=== PATIENT | male | born 2000 | race Hispanic/Latino ===

== ENCOUNTER 2019-09-30 13:38 | Emergency (ER) | payer OTHER, SELFPAY ==
[2019-09-30] MEDS ORDERED: HYDROCODONE/APAP 10/325 TAB ONE (14:21)
--- NOTE | 2019-09-30 16:00 | ER ---
Nurse's Notes [facility] Name: Ilir Underwood Age: 18 yrs Sex: Male : 2000 Arrival Date: 09/30/2019 Time: 13:40 Bed 20 Private MD: Diagnosis: Acute upper respiratory infection, unspecified Presentation: 09/29 13:48 Chief complaint: Patient states: Monday, feeling ill, sore throat body aches. Reports ca1 mid and low back pain, radiating to both legs. Reports difficulty urinating, urinary urgency and frequency. Denies cough. Reports a little SOB. Denies N/V/D. Coronavirus screen: Surgical mask placed on patient. Patient moved to private room, placed in contact and droplet isolation with eye protection until further assessment. Patient denies a cough. Patient reports shortness of breath or difficulty breathing. Patient reports a measured and/or subjective temperature greater than 100.4F. Patient denies travel on a cruise ship or to a country the [facility] currently lists as an affected area. Patient denies contact with known and/or suspected case of COVID-19. Ebola Screen: Patient negative for fever greater than or equal to 101.5 degrees Fahrenheit, and additional compatible Ebola Virus Disease symptoms Patient denies exposure to infectious person. Patient denies travel to an Ebola-affected area in the 21 days before illness onset. No symptoms or risks identified at this time. Initial Sepsis Screen: Does the patient meet any 2 criteria? Temp <36.0*C (96.8*F)) or > 38.3*C (100.9*F). HR > 90 bpm. Does the patient have a suspected source of infection? Yes: Dysuria/Frequency/Urgency/UTI. Risk Assessment: Do you want to hurt yourself or someone else? Patient reports no desire to harm self or others. Onset of symptoms was September 30, 2019. 13:48 Method Of Arrival: Ambulatory ca1 13:48 Acuity: ASA 2 ca1 13:56 Note Took Tylenol and Ibuprofen 1000 an 1100 today. ca1 Historical: - Allergies: 13:54 No Known Allergies; ca1 - Home Meds: 13:54 None [Active]; ca1 - PMHx: 13:54 None; ca1 - PSHx: 13:54 None; ca1 - Immunization history:: Adult Immunizations up to date. - Social history:: Smoking status: Patient reports the use of cigarette tobacco products, smokes one-half pack cigarettes per day, Patient/guardian denies using alcohol, street drugs. - Family history:: not pertinent. Screenin:36 Abuse screen: Denies threats or abuse. Denies injuries from another. Nutritional jl7 screening: No deficits noted. Tuberculosis screening: No symptoms or risk factors identified. Fall Risk None identified. Assessment: 14:36 General: Appears in no apparent distress. uncomfortable, Behavior is calm, cooperative, jl7 appropriate for age. Pain: Complains of pain in all over Pain currently is 8 out of 10 on a pain scale. Neuro: Level of Consciousness is awake, alert, obeys commands, Oriented to person, place, time, situation. Cardiovascular: Patient's skin is warm and dry. Respiratory: Airway is patent Respiratory effort is even, unlabored, Respiratory pattern is regular, symmetrical. EENT: Throat is reddened. Derm: Skin is pink, warm \T\ dry. 15:30 Reassessment: Patient appears in no apparent distress at this time. No changes from jl7 previously documented assessment. Patient and/or family updated on plan of care and expected duration. Pain level reassessed. Patient is alert, oriented x 3, equal unlabored respirations, skin warm/dry/pink. 16:19 Reassessment: Patient states feeling better. Patient states symptoms have improved. jl7 Vital Signs: 13:48 BP 115 / 60; Pulse 124; Resp 16 S; Temp 103.2(O); Pulse Ox 96% on R/A; Weight 90.72 kg ca1 (R); Height 6 ft. 0 in. (182.88 cm) (R); Pain 8/10; 14:36 BP 126 / 74; Pulse 118; Resp 17 S; Temp 102.8(O); Pulse Ox 100% on R/A; jl7 16:13 BP 127 / 75; Pulse 104; Resp 17; Temp 101.4; Pulse Ox 100% ; jl7 13:48 Body Mass Index 27.12 (90.72 kg, 182.88 cm) ca1 ED Course: 13:40 Patient arrived in ED. ag5 13:54 Triage completed. ca1 13:54 Arm band placed on right wrist. ca1 13:57 Maria Esther Clement, RN is Primary Nurse. dw 14:05 Mikel Cee MD is Attending Physician. 14:34 Reinaldo Mahmood, STEFAN is Primary Nurse. jl7 14:36 Patient has correct armband on for positive identification. Bed in low position. Call jl7 light in reach. Side rails up X 1. Pulse ox on. NIBP on. 14:36 Flu and/or RSV swab sent to lab. Strep swab sent to lab. COVID-19 swab sent to lab. jl7 16:19 No provider procedures requiring assistance completed. Patient did not have IV access jl7 during this emergency room visit. Administered Medications: 14:25 Drug: [place] 10 mg-325 mg 1 tabs Route: PO; jl7 15:00 Follow up: Response: No adverse reaction; Pain is decreased jl7 Outcome: 15:59 Discharge ordered by . laisha 16:19 Discharged to home ambulatory. jl7 16:19 Condition: stable 16:19 Discharge instructions given to patient, Instructed on discharge instructions, follow up and referral plans. medication usage, Demonstrated understanding of instructions, follow-up care, medications, Prescriptions given X 3. 16:20 Patient left the ED. jl7 Addendum: 10/03/2019 15:29 Addendum: Other attempted to contact pt regarding negative COVID-19 swab results. d m5 Reached busy signal. 10/06/2019 12:01 Addendum: Other attempted to contact pt regarding negative COVID-19 swab results. d m5 Reached busy signal. Signatures: Alana Ashley, RN RN dm5 Maria Esther Clement, RN Cassidy Murray RN RN ss Leal, Jahala, Mikel Gonzalez RN, MD MD ma2 Acob, Cheryl, RN RN ca1 Gaskin, Ajare ag5
--- NOTE | 2019-09-30 16:00 | EDPHYS ---
Physician Documentation [facility] Name: Ilir Underwood Age: 18 yrs Sex: Male : 2000 Arrival Date: 09/30/2019 Time: 13:40 Bed 20 Private MD: ED Physician Mikel Cee HPI: 09/29 15:58 This 18 yrs old Male presents to ER via Ambulatory with complaints of Sore ma2 Throat, Body Aches. 15:58 The patient presents with dysphagia. The patient describes throat pain as constant. ma2 Onset: The symptoms/episode began/occurred gradually, 2 day(s) ago. Severity of symptoms: At their worst the symptoms were moderate, in the emergency department the symptoms are unchanged. Associated signs and symptoms: Pertinent negatives chills, diarrhea, dysphagia, fever. The patient has not experienced similar symptoms in the past. Historical: - Allergies: 13:54 No Known Allergies; ca1 - Home Meds: 13:54 None [Active]; ca1 - PMHx: 13:54 None; ca1 - PSHx: 13:54 None; ca1 - Immunization history:: Adult Immunizations up to date. - Social history:: Smoking status: Patient reports the use of cigarette tobacco products, smokes one-half pack cigarettes per day, Patient/guardian denies using alcohol, street drugs. - Family history:: not pertinent. ROS: 15:58 Constitutional: Negative for fever, chills, and weight loss. ma2 15:58 All other systems are negative. Exam: 15:58 Constitutional: This is a well developed, well nourished patient who is awake, alert, ma2 and in no acute distress. Head/Face: Normocephalic, atraumatic. Eyes: Pupils equal round and reactive to light, extra-ocular motions intact. Lids and lashes normal. Conjunctiva and sclera are non-icteric and not injected. Cornea within normal limits. Periorbital areas with no swelling, redness, or edema. ENT: Nares patent. No nasal discharge, no septal abnormalities noted. Tympanic membranes are normal and external auditory canals are clear. Oropharynx with no redness, swelling, or masses, exudates, or evidence of obstruction, uvula midline. Mucous membranes moist. Neck: Trachea midline, no thyromegaly or masses palpated, and no cervical lymphadenopathy. Supple, full range of motion without nuchal rigidity, or vertebral point tenderness. No Meningismus. Chest/axilla: Normal chest wall appearance and motion. Nontender with no deformity. No lesions are appreciated. Cardiovascular: Regular rate and rhythm with a normal S1 and S2. No gallops, murmurs, or rubs. Normal PMI, no JVD. No pulse deficits. Respiratory: Lungs have equal breath sounds bilaterally, clear to auscultation and percussion. No rales, rhonchi or wheezes noted. No increased work of breathing, no retractions or nasal flaring. Abdomen/GI: Soft, non-tender, with normal bowel sounds. No distension or tympany. No guarding or rebound. No evidence of tenderness throughout. MS/ Extremity: Pulses equal, no cyanosis. Neurovascular intact. Full, normal range of motion. Neuro: Awake and alert, GCS 15, oriented to person, place, time, and situation. Cranial nerves II-XII grossly intact. Motor strength 5/5 in all extremities. Sensory grossly intact. Cerebellar exam normal. Normal gait. Vital Signs: 13:48 BP 115 / 60; Pulse 124; Resp 16 S; Temp 103.2(O); Pulse Ox 96% on R/A; Weight 90.72 kg ca1 (R); Height 6 ft. 0 in. (182.88 cm) (R); Pain 8/10; 14:36 BP 126 / 74; Pulse 118; Resp 17 S; Temp 102.8(O); Pulse Ox 100% on R/A; jl7 16:13 BP 127 / 75; Pulse 104; Resp 17; Temp 101.4; Pulse Ox 100% ; jl7 13:48 Body Mass Index 27.12 (90.72 kg, 182.88 cm) ca1 MDM: 14:11 Patient medically screened. ma2 15:58 Differential diagnosis: bronchitis, pharyngitis, tonsillitis, upper respiratory ma2 infection, viral syndrome. Data reviewed: vital signs, nurses notes. Counseling: I had a detailed discussion with the patient and/or guardian regarding: the historical points, exam findings, and any diagnostic results supporting the discharge/admit diagnosis, the presence of at least one elevated blood pressure reading (>120/80) during this emergency department visit, the need for outpatient follow up. Response to treatment: the patient's symptoms have markedly improved after treatment. 09/29 14:12 Order name: COVID-19 [facility] 09/29 14:12 Order name: Flu [facility] 09/29 14:12 Order name: Strep; Complete Time: 15:44 [facility] 09/29 15:46 Order name: Throat Culture [facility] 09/29 14:12 Order name: Droplet/Contact Precautions; Complete Time: 14:15 [facility] 09/29 14:12 Order name: O2 Per Protocol; Complete Time: 14:15 [facility] Administered Medications: 14:25 Drug: [place] 10 mg-325 mg 1 tabs Route: PO; [facility] 15:00 Follow up: Response: No adverse reaction; Pain is decreased 7 Disposition: 09/30/19 15:59 Discharged to Home. Impression: Acute upper respiratory infection, unspecified. - Condition is Stable. - Discharge Instructions: Viral Respiratory Infection, [id number]. - Prescriptions for Diclofenac Sodium 75 mg Oral Tablet Sustained Release - take 1 tablet by ORAL route 2 times per day; 30 tablet. Zithromax Z- Duran 250 mg Oral Tablet - take 1 tablet by ORAL route as directed for 5 days Day 1 - take two (2) tablets one time. Day 2, 3, 4 , 5 take one (1) tablet once daily.; 6 tablet. Medrol (Duran) 4 mg Oral Tablets, Dose Pack - take 1 tablet by ORAL route as directed - follow package instructions; 1 packet. - Medication Reconciliation Form, Thank You Letter, Antibiotic Education, Prescription Opioid Use form. - Follow up: Private Physician; When: Tomorrow; Reason: Continuance of care. Signatures: Dispatcher [employer] [facility] Reinaldo Mahmood RN RN jl7 Mikel Cee MD MD ma2 Tara Bravo RN RN ca1 Corrections: (The following items were deleted from the chart) 16:20 15:59 09/30/2019 15:59 Discharged to Home. Impression: Acute upper respiratory jl7 infection, unspecified. Condition is Stable. Forms are Medication Reconciliation Form, Thank You Letter, Antibiotic Education, Prescription Opioid Use. Follow up: Private Physician; When: Tomorrow; Reason: Continuance of care. ma2
[2019-09-30 16:29] VITALS: O2SAT 100
[2019-09-30 16:30] VITALS: BP 127/75; TEMP 101.4
== END 2019-09-30 16:20 | disposition home or self-care (01) ==
LOC: ER 13:38
DX: J06.9 Acute upper respiratory infection, unspecified (principal); Z20.828 Contact with and (suspected) exposure to other viral communicable diseases; F17.210 Nicotine dependence, cigarettes, uncomplicated
CPT/HCPCS: 87070; 87081; 87804; 99284; U0001; U0002